=== PATIENT | female | born 1965 | race Two or more races ===

== ENCOUNTER 2018-06-17 08:25 | Outpatient (CLI) | payer OTHER | END 2018-06-17 08:31 | disposition home or self-care (01) | LOC: RX STUDY 08:25 | DX: K21.9 Gastro-esophageal reflux disease without esophagitis (principal); R13.19 Other dysphagia ==

== ENCOUNTER 2018-06-26 10:27 | Emergency (ER) | payer OTHER ==
[~2018-06-26] VITALS: Ht 154.9 cm; Wt 65.3 kg
[2018-06-26] MEDS ORDERED: SIMVASTATIN20 MG (10:56)
[2018-06-26] MEDS ORDERED: ATENOLOL25 GM (10:57)
[2018-06-26] MEDS ORDERED: LISINOPRIL10 MG (10:57)
== END 2018-06-26 20:11 | disposition home or self-care (01) ==
LOC: ER 10:27
DX: R00.2 Palpitations (principal)